=== PATIENT | male | born 1990 | race Asian ===

== ENCOUNTER 2022-07-04 19:26 | Emergency (ER) | payer OTHER ==
[2022-07-04 20:04] LABS: Absolute Lymphocytes (CBC) 2.5 K/uL (0.7-4.9); Hematocrit 48.9 % (39.6-49.0); Lymphocytes % 20.3 % (15.3-44.8); MCV 86.1 fL (80-100); MPV 8.7 fL (7.6-11.3); RBC Red Blood Cell Count 5.67 M/uL (4.33-5.43)
[2022-07-04 20:19] LABS: Magnesium 2.3 mg/dL (1.6-2.4); Potassium 3.4 mmol/L (3.5-5.1)
--- NOTE | 2022-07-04 20:26 | RAD REPORT ---
EXAM DESCRIPTION: RAD - Chest Single View - 07/04/2022 8:21 pm CLINICAL HISTORY: PALPITATIONS Chest pain. COMPARISON: No comparisons FINDINGS: Portable technique limits examination quality. The lungs are grossly clear. The heart is normal in size. No displaced fractures. IMPRESSION: No acute intrathoracic process suspected.
--- NOTE | 2022-07-04 21:30 | RAD REPORT ---
EXAM DESCRIPTION: CT - Chest For Pe Angio - 07/04/2022 8:59 pm CLINICAL HISTORY: Chest pain. PALPITATIONS COMPARISON: No comparisons TECHNIQUE: CT angiogram of the pulmonary arteries was performed with MIP. All CT scans are performed using dose optimization technique as appropriate and may include automated exposure control or mA/KV adjustment according to patient size. FINDINGS: No evidence of pulmonary thromboembolism. No acute aortic finding demonstrated. The lungs are clear. No significant pericardial or pleural fluid. No concerning bony finding. IMPRESSION: No evidence of pulmonary thromboembolism. No acute lung findings.
--- NOTE | 2022-07-04 21:36 | EDPHYS ---
Physician Documentation [facility] Name: Yvon Barron Age: 32 yrs Sex: Male : 1990 Arrival Date: 07/04/2022 Time: 19:29 Bed 10 Private MD: ED Physician Yeison Torres HPI: 07/04 21:33 This 32 yrs old Male presents to ER via Ambulatory with complaints of Shortness kb Of Breath, Irregular Pulse. 21:33 Severity of symptoms: At their worst the symptoms were moderate in the emergency kb department the symptoms are unchanged. 21:33 The patient presents with a history of heart racing. Context: The symptoms occur at kb rest. Onset: The symptoms/episode began/occurred yesterday. Duration: The patient or guardian reports a single episode. Modifying factors: The symptoms are aggravated by nothing. The symptoms are alleviated by nothing. Associated signs and symptoms: Pertinent positives: chest pain. The patient has not experienced similar symptoms in the past. The patient has not recently seen a physician. Patient reports palpitations started yesterday morning after working out. Report chest pain that is now resolved. Denies shortness of breath.. Historical: - Allergies: 19:40 No Known Allergies; ll3 - Home Meds: 19:40 testosterone undecanoate oral [Active]; ll3 - PMHx: 19:40 None; ll3 - Immunization history:: Client reports having NOT received the Covid vaccine. - Social history:: Smoking status: Patient denies any tobacco usage or history of. ROS: 21:33 Constitutional: Negative for fever, chills, and weight loss. kb 21:33 Cardiovascular: Positive for chest pain, palpitations. 21:33 All other systems are negative. Exam: 21:33 Constitutional: This is a well developed, well nourished patient who is awake, alert, kb and in no acute distress. Head/Face: Normocephalic, atraumatic. ENT: Moist Mucous membranes Cardiovascular: Regular rate and rhythm with a normal S1 and S2. No gallops, murmurs, or rubs. No pulse deficits. Respiratory: Respirations even and unlabored. No increased work of breathing. Talking in full sentences Abdomen/GI: Soft, non-tender. No distention Skin: Warm, dry with normal turgor. Normal color. MS/ Extremity: Pulses equal, no cyanosis. Neurovascular intact. Full, normal range of motion. Neuro: Awake and alert, GCS 15, oriented to person, place, time, and situation. Moves all extremities. Normal gait. Psych: Awake, alert, with orientation to person, place and time. Behavior, mood, and affect are within normal limits. 21:33 ECG was reviewed by the Attending Physician. Vital Signs: 19:36 BP 152 / 83; Pulse 104; Resp 18; Temp 98.3(O); Pulse Ox 99% on R/A; Weight 80.29 kg ll3 (R); Height 5 ft. 5 in. (165.10 cm); 20:08 BP 131 / 64; Pulse 103; Resp 15 S; Pulse Ox 96% on R/A; as6 21:15 BP 112 / 88; Pulse 96; Resp 18 S; Pulse Ox 99% on R/A; as6 22:19 BP 124 / 86; Pulse 95; Resp 16 S; Pulse Ox 99% on R/A; as6 19:36 Body Mass Index 29.45 (80.29 kg, 165.10 cm) ll3 MDM: 19:37 Patient medically screened. kb 21:33 Differential diagnosis: arrythmia, dehydration, stress disorder. Data reviewed: vital kb signs, nurses notes. Independent interpretation of the following test(s) in the Emergency Department EKG: See my EKG interpretation above. Scoring Tools HEART Score: Total Score = 0. Counseling: I had a detailed discussion with the patient and/or guardian regarding: the historical points, exam findings, and any diagnostic results supporting the discharge/admit diagnosis, lab results, radiology results, the need for outpatient follow up, a family practitioner, to return to the emergency department if symptoms worsen or persist or if there are any questions or concerns that arise at home. 07/04 19:41 Order name: Basic Metabolic Panel; Complete Time: 20:24 kb 07/04 19:41 Order name: CBC with Diff; Complete Time: 20:10 kb 07/04 19:41 Order name: D-Dimer; Complete Time: 20:24 kb 07/04 19:41 Order name: Magnesium; Complete Time: 20:24 kb 07/04 19:41 Order name: Troponin HS; Complete Time: 20:24 kb 07/04 19:41 Order name: XRAY Chest (1 view); Complete Time: 20:32 kb 07/04 19:41 Order name: EKG; Complete Time: 19:42 kb 07/04 19:41 Order name: Cardiac monitoring; Complete Time: 20:09 kb 07/04 19:41 Order name: EKG - Nurse/Tech; Complete Time: 19:45 kb 07/04 19:41 Order name: IV Saline Lock; Complete Time: 19:57 kb 07/04 19:41 Order name: Labs collected and sent; Complete Time: 19:57 kb 07/04 20:24 Order name: CT Chest For PE Angio; Complete Time: 21:32 kb 07/04 19:41 Order name: O2 Per Protocol; Complete Time: 20:09 kb 07/04 19:41 Order name: O2 Sat Monitoring; Complete Time: 20:09 kb EC:33 Rate is 105 beats/min. Rhythm is regular. QRS [place] is Normal. [place] interval is normal at kb 162 msec. QRS interval is normal at 104 msec. QT interval is normal at 428 msec. Administered Medications: 21:44 Drug: NS 0.9% 1000 ml Route: IV; Rate: 1000 ml; Site: right antecubital; as6 22:19 Follow up: Response: No adverse reaction; IV Status: Completed infusion; IV Intake: as6 1000ml 21:45 Drug: Potassium Chloride 20 mEq Route: PO; as6 22:19 Follow up: Response: No adverse reaction as6 Disposition Summary: 07/04/22 21:35 Discharge Ordered Location: Home kb Condition: Stable kb Diagnosis - Palpitations kb Followup: kb - With: Emergency Department - When: As needed - Reason: Worsening of condition Followup: kb - With: Private Physician - When: 2 - 3 days - Reason: Recheck today's complaints, Continuance of care, Re-evaluation by your physician Discharge Instructions: - Discharge Summary Sheet kb - Panic Attack, [id number] kb - Palpitations, [id number] kb Forms: - Medication Reconciliation Form kb - Thank You Letter kb - Antibiotic Education kb - Prescription Opioid Use kb Signatures: Dispatcher [employer] EDMS Supriya Noel FNP-C FNP-Ckb Slawson, Ashby RN RN as6 Alisa Greenberg RN RN ll3 Corrections: (The following items were deleted from the chart) 19:42 19:40 Home Meds: None; ll3 ll3
--- NOTE | 2022-07-04 21:36 | ER ---
Nurse's Notes [facility] Name: Yvon Barron Age: 32 yrs Sex: Male : 1990 Arrival Date: 07/04/2022 Time: 19:29 Bed 10 Private MD: Diagnosis: Palpitations Presentation: 07/04 19:36 Chief complaint: Patient states: C/o palpations, racing heart, and chest pain since ll3 yesterday, and red eyes. Coronavirus screen: Vaccine status: Patient reports being unvaccinated. At this time, the client does not indicate any symptoms associated with coronavirus-19. Ebola Screen: No symptoms or risks identified at this time. Initial Sepsis Screen: Does the patient meet any 2 criteria? No. Patient's initial sepsis screen is negative. Does the patient have a suspected source of infection? No. Patient's initial sepsis screen is negative. Risk Assessment: Do you want to hurt yourself or someone else? Patient reports no desire to harm self or others. Onset of symptoms was July 03, 2022 at 22:00. 19:36 Method Of Arrival: Ambulatory ll3 19:36 Acuity: BHARAT 2 ll3 Triage Assessment: 19:40 General: Appears uncomfortable, Behavior is calm, cooperative. Pain: Complains of pain ll3 in chest. Neuro: Level of Consciousness is awake, alert, obeys commands, Oriented to person, place, time, situation. Cardiovascular: Reports chest pain, diaphoresis, palpitations. Respiratory: Reports Denies SOB Onset: The symptoms/episode began/occurred yesterday, the patient reports symptoms have resolved Denies cough, shortness of breath. Derm: Skin is pink, warm \T\ dry. Historical: - Allergies: 19:40 No Known Allergies; ll3 - Home Meds: 19:40 testosterone undecanoate oral [Active]; ll3 - PMHx: 19:40 None; ll3 - Immunization history:: Client reports having NOT received the Covid vaccine. - Social history:: Smoking status: Patient denies any tobacco usage or history of. Screenin:08 [facility] ED Fall Risk Assessment (Adult) Score/Fall Risk Level 0 - 2 = Low Risk. Abuse as6 screen: Denies threats or abuse. Denies injuries from another. Nutritional screening: No deficits noted. Tuberculosis screening: No symptoms or risk factors identified. Assessment: 20:07 General: Appears in no apparent distress. Behavior is calm, cooperative. General: as6 Reports fatigue for. Pain: Complains of pain in chest. Neuro: Level of Consciousness is awake, alert, obeys commands, Oriented to person, place, time, situation. Cardiovascular: Capillary refill < 3 seconds Patient's skin is warm and dry. Rhythm is sinus tachycardia. Cardiovascular: Reports chest pain, palpitations, shortness of breath. Respiratory: Reports shortness of breath Airway is patent Trachea midline Respiratory effort is even, unlabored, Respiratory pattern is regular, symmetrical, Breath sounds are clear bilaterally. 21:15 Reassessment: Patient states feeling better. as6 21:49 General: discharge pending fluid administration . as6 Vital Signs: 19:36 BP 152 / 83; Pulse 104; Resp 18; Temp 98.3(O); Pulse Ox 99% on R/A; Weight 80.29 kg ll3 (R); Height 5 ft. 5 in. (165.10 cm); 20:08 BP 131 / 64; Pulse 103; Resp 15 S; Pulse Ox 96% on R/A; as6 21:15 BP 112 / 88; Pulse 96; Resp 18 S; Pulse Ox 99% on R/A; as6 22:19 BP 124 / 86; Pulse 95; Resp 16 S; Pulse Ox 99% on R/A; as6 19:36 Body Mass Index 29.45 (80.29 kg, 165.10 cm) ll3 ED Course: 19:29 Patient arrived in ED. as 19:34 Supriya Noel [facility]NP-C [facility]. kb 19:34 Yeison Torres MD is Attending Physician. kb 19:40 Triage completed. ll3 19:40 Arm band placed on. ll3 19:45 Avtar Musa, CHANDRIKA is Primary Nurse. as6 19:55 Inserted saline lock: 20 gauge in right antecubital area, using aseptic technique. rv1 Blood collected. 20:08 Bed in low position. Call light in reach. Side rails up X 1. Adult w/ patient. Pulse ox as6 on. NIBP on. 20:22 XRAY Chest (1 view) In Process Unspecified. EDMS 21:01 CT Chest For PE Angio In Process Unspecified. EDMS 21:51 No provider procedures requiring assistance completed. as6 22:20 IV discontinued, intact, bleeding controlled, No redness/swelling at site. Pressure as6 dressing applied. Administered Medications: 21:44 Drug: NS 0.9% 1000 ml Route: IV; Rate: 1000 ml; Site: right antecubital; as6 22:19 Follow up: Response: No adverse reaction; IV Status: Completed infusion; IV Intake: as6 1000ml 21:45 Drug: Potassium Chloride 20 mEq Route: PO; as6 22:19 Follow up: Response: No adverse reaction as6 Medication: 20:08 VIS not applicable for this client. as6 Intake: 22:19 IV: 1000ml; Total: 1000ml. as6 Outcome: 21:35 Discharge ordered by MD. giraldo 21:51 Discharged to home ambulatory, with significant other. as6 21:51 Condition: stable 22:20 Discharge instructions given to patient, friend, Instructed on discharge instructions, as6 follow up and referral plans. Demonstrated understanding of instructions, follow-up care. 22:20 Patient left the ED. as6 Signatures: Dispatcher [employer] EDSupriya Cortez, ASSOCIATE OF SCIENCE IN NURSING-C ASSOCIATE OF SCIENCE IN NURSING-Mary Tejada Ashby, RN RN as6 Alisa Greenberg RN RN ll3 Adia David rv1 Corrections: (The following items were deleted from the chart) 19:42 19:40 Home Meds: None; ll3 ll3
[2022-07-04] MEDS ORDERED: POTASSIUM CL SA 10 MEQ TAB PO ONE (21:45)
[2022-07-04] MEDS ORDERED: NA CHLORIDE 0.9% 1,000 ML ONE (21:45)
[2022-07-04 23:33] VITALS: TEMP 98.3
[2022-07-04 23:48] VITALS: O2SAT 99
[2022-07-04 23:49] VITALS: BP 124/86
== END 2022-07-04 22:20 | disposition home or self-care (01) ==
LOC: ER 19:26
DX: R00.2 Palpitations (principal)
CPT/HCPCS: 85025; 80048; 36415; 83735; 85379; 84484; 71275; 71045; Q9967; J7030; 93005